=== PATIENT | male | born 1930 | race Caucasian/White ===

== ENCOUNTER 2016-05-14 15:22 | Outpatient (CLI) | payer MEDICARE, OTHER | END 2016-05-14 15:23 | disposition home or self-care (01) | DX: R35.8 Other polyuria (principal); R10.9 Unspecified abdominal pain ==

== ENCOUNTER 2016-05-21 12:58 | Outpatient (CLI) | payer MEDICARE, OTHER | END 2016-05-21 12:59 | disposition home or self-care (01) | DX: K82.4 Cholesterolosis of gallbladder (principal); N28.1 Cyst of kidney, acquired; R10.9 Unspecified abdominal pain; R31.9 Hematuria, unspecified ==

== ENCOUNTER 2016-06-07 10:51 | Outpatient (CLI) | payer MEDICARE, OTHER | END 2016-06-07 10:52 | disposition home or self-care (01) | DX: R31.9 Hematuria, unspecified (principal); R10.9 Unspecified abdominal pain ==

== ENCOUNTER 2016-06-20 09:37 | Outpatient (CLI) | payer MEDICARE, OTHER ==
[2016-06-20] MEDS ORDERED: SODIUM CHLORIDE 0.9% IV ONE (14:52)
[2016-06-20] MEDS ORDERED: SINCALIDE IV ONE (14:52)
== END 2016-06-20 09:38 | disposition home or self-care (01) ==
DX: Q61.02 Congenital multiple renal cysts (principal); R31.9 Hematuria, unspecified
CPT/HCPCS: 74176; 78227; A9537

== ENCOUNTER 2016-09-07 10:28 | Outpatient (CLI) | payer MEDICARE, OTHER | END 2016-09-07 10:29 | disposition home or self-care (01) | DX: M50.321 Other cervical disc degeneration at C4-C5 level (principal); M47.892 Other spondylosis, cervical region; M43.12 Spondylolisthesis, cervical region ==

== ENCOUNTER 2016-10-15 12:17 | Outpatient (CLI) | payer MEDICARE, OTHER ==
--- NOTE | 2016-10-16 09:39 | XRAY Report ---
CHEST PA AND LATERAL: 10/15/2016 CLINICAL HISTORY: Dyspnea. COMPARISON: 04/14/2015. FINDINGS: Sternal wire sutures are seen. Mild anterior spurring is detected in the thoracic spine. T here are some bridging osteophytes suggested in the mid to lower thoracic spine. The heart and great vessels demonstrate normal cardiac size with minor vascular calcification in the aortic arch. The mediastinum is not widened. The pulmonary parenchyma appears normal. IMPRESSION: 1. STERNAL WIRE SUTURES ARE NOTED. NORMAL CARDIAC SIZE IS SEEN. 2. THE LUNGS APPEAR NORMAL. JOB #: [id number] EXT JOB #:[id number]
== END 2016-10-15 12:18 | disposition home or self-care (01) ==
LOC: DI.S 12:17
PROVIDERS: ATTEND Nurse Practitioner Family
DX: R06.00 Dyspnea, unspecified (principal)
CPT/HCPCS: 71020; 93005

== ENCOUNTER 2016-10-24 08:00 | Outpatient (CLI) | payer MEDICARE, OTHER | END 2016-10-24 08:01 | disposition home or self-care (01) | LOC: LAB.R 08:00 | PROVIDERS: ATTEND Family Medicine | DX: R31.9 Hematuria, unspecified (principal) | CPT/HCPCS: 87086 ==

== ENCOUNTER 2017-03-06 13:20 | Outpatient (CLI) | payer MEDICARE, OTHER ==
--- NOTE | 2017-03-06 16:10 | Ultrasound Report ---
LEFT LEG VENOUS DUPLEX: 03/06/2017 INDICATION: Left calf pain, swelling TECHNIQUE: Real-time sonographic vascular imaging was performed by the kiln car unloader through the left leg utilizing both color flow and Doppler spectral analysis. Multiple credit resolution representative static images were saved for review. FINDINGS: A left lower extremity venous sonogram is performed revealing the common femoral, superficial femoral, profunda femoris, and popliteal veins to be adequately visualized without intraluminal defects. There is normal venous compression, augmentation, phasicity, and spontaneity of venous flow. In the calf, the visualized more cephalad portions of posterior tibial and peroneal veins are grossly compressible, without filling defects. Superficial thrombophlebitis is seen in the left [id number] calf, in the site of redness and pain identified by the patient. IMPRESSION: NO EVIDENCE OF DEEP VENOUS THROMBOSIS. SUPERFICIAL THROMBOPHLEBITIS. JOB #: [id number] EXT JOB #: [id number] GARFIELD
== END 2017-03-06 13:21 | disposition home or self-care (01) ==
LOC: DI 13:20
PROVIDERS: ATTEND Family Medicine
DX: I80.02 Phlebitis and thrombophlebitis of superficial vessels of left lower extremity (principal)

== ENCOUNTER 2017-04-14 14:22 | Outpatient (CLI) | payer MEDICARE, OTHER ==
--- NOTE | 2017-04-17 13:39 | Ultrasound Report ---
LEFT LEG VENOUS DUPLEX: 04/14/2017 CLINICAL INDICATION: Thrombophlebitis, superficial. COMPARISON: 03/06/2017 TECHNIQUE: Real-time sonographic vascular imaging was performed by the customer service professional through the left leg utilizing both color-flow and Doppler spectral analysis. Multiple medical office representative static images were saved for review. FINDINGS: There is normal compression, augmentation, and flow in the left common femoral, superficial femoral, profunda femoris, popliteal, and deep calf veins. Superficial thrombophlebitis has propagated proximally, with thrombus now seen through the left thigh to within 3 cm of the left common femoral vein. IMPRESSION: NO EVIDENCE OF DVT, BUT THERE HAS BEEN PROPAGATION OF SUPERFICIAL THROMBOPHLEBITIS IN THE LEFT THIGH. LOR/ TD: 04/14/2017 16:46 MTDD
== END 2017-04-14 14:23 | disposition home or self-care (01) ==
LOC: DI 14:22
PROVIDERS: ATTEND Family Medicine
DX: I80.02 Phlebitis and thrombophlebitis of superficial vessels of left lower extremity (principal)

== ENCOUNTER 2017-04-22 08:00 | Outpatient (CLI) | payer MEDICARE, OTHER | END 2017-04-22 08:01 | disposition home or self-care (01) | LOC: LAB.F 08:00 | PROVIDERS: ATTEND Nurse Practitioner Family | DX: Z53.9 Procedure and treatment not carried out, unspecified reason (principal) | CPT/HCPCS: 36415; 80053; 84154; 85025 ==

== ENCOUNTER 2017-04-23 10:08 | Outpatient (CLI) | payer MEDICARE, OTHER ==
[2017-04-23 18:31] LABS: BASOPHILS % (AUTO) 0.4 %; EOSINOPHILS # (AUTO) 0.1 10^3/uL (0.0-0.7); EOSINOPHILS % (AUTO) 1.5 %; LYMPHOCYTES # (AUTO) 1.7 10^3/uL (1.5-3.5); LYMPHOCYTES % (AUTO) 20.9 %; MEAN CORPUSCULAR HEMOGLOBIN 32.2 pg (27.0-31.0); MEAN CORPUSCULAR HGB CONC 31.9 g/dL (32.0-36.0); MEAN CORPUSCULAR VOLUME 100.8 fL (80.0-94.0); MEAN PLATELET VOLUME 7.7 fL (7.4-11.4); MONOCYTES # (AUTO) 0.7 10^3/uL (0.0-1.0); NEUTROPHILS # (AUTO) 5.4 10^3/uL (1.5-6.6); NEUTROPHILS % (AUTO) 68.2 %; NUCLEATED RED BLOOD CELLS AUTO 0.2 /100WBC; RED BLOOD COUNT 4.66 10^6/uL (4.70-6.10); RED CELL DISTRIBUTION WIDTH 15.5 % (12.0-15.0)
[2017-04-23 18:39] LABS: ALBUMIN/GLOBULIN RATIO 1.4 (1.0-2.2); BILIRUBIN,TOTAL 0.6 mg/dL (0.2-1.0); CALCIUM 9.3 mg/dL (8.5-10.3); CREATININE 1.3 mg/dL (0.6-1.2); TOTAL PROTEIN 7.2 g/dL (6.7-8.2)
[2017-04-23 18:50] LABS: PSA FREE 0.81 ng/mL (0.16-2.81)
[2017-04-23 18:51] LABS: PSA TOTAL 3.21 ng/mL (0.000-2.000)
[2017-04-23 19:57] LABS: NP AUTO DIFFERENTIAL? NO; NP MAN DIFFERENTIAL? YES
[2017-04-23 19:58] LABS: PLATELET ESTIMATE, MANUAL INCREASED (>450,000) (NORMAL); PLATELET MORPHOLOGY 1+ LARGE PLATELETS (NORMAL)
== END 2017-04-23 10:09 | disposition home or self-care (01) ==
LOC: LAB.F 10:08
PROVIDERS: ATTEND Nurse Practitioner Family
DX: Z79.01 Long term (current) use of anticoagulants (principal); I80.02 Phlebitis and thrombophlebitis of superficial vessels of left lower extremity; R97.20 Elevated prostate specific antigen [PSA]
CPT/HCPCS: 36415; 80053; 84154; 85025

== ENCOUNTER 2017-05-01 10:50 | Outpatient (CLI) | payer MEDICARE, OTHER ==
[2017-05-01] MEDS ORDERED: IOPAMIDOL-300 100 ML VIAL IVP ONE (13:32)
--- NOTE | 2017-05-02 10:02 | CT Report ---
DATE OF SERVICE: 05/01/2017 EXAMINATION: ABDOMEN AND PELVIS CT WITH AND WITHOUT CONTRAST: 05/01/2017 COMPARISON: Abdomen and pelvis CT of 06/20/2016. INDICATION: Hematuria. TECHNIQUE: Axial imaging of the abdomen and pelvis was performed with and without contrast using IVP technique. 100 mL of Isovue-300 intravenous contrast. No oral contrast. Coronal and sagittal reformats. FINDINGS There is a small left pleural effusion of uncertain etiology. The liver, spleen and pancreas appear unremarkable. There is a left adrenal nodule. It measures 2.1 x 1.8 cm, and -10 Hounsfield units, consistent with a lipid-rich adenoma. There is mild right adrenal hypertrophy and calcification. There are multiple bilateral renal cortical cysts. No renal mass. There is a focal thickening of the right posterior bladder that measures 8 mm. This is seen to advantage on axial image #64 and coronal image #27. No other filling defects are demonstrated on IVP. Sternotomy is noted. No discrete bone lesions in other regards. Soft tissues grossly unremarkable. IMPRESSION 1. THERE IS A FOCAL AREA OF BLADDER WALL THICKENING WHICH IS CONCERNING FOR POSSIBLE NEOPLASM. UROLOGIC CONSULTATION IS RECOMMENDED FOR CONSIDERATION OF CYSTOSCOPY. 2. 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 In accordance with CT protocol optimization, one or more of the following dose reduction techniques were utilized for this exam: automated exposure control, adjustment of mA and/or KV based on patient size, or use of iterative reconstructive technique. TD: 05/02/2017 10:30 G[place]
== END 2017-05-01 10:51 | disposition home or self-care (01) ==
LOC: DI 10:50
PROVIDERS: ATTEND Family Medicine
DX: N32.89 Other specified disorders of bladder (principal); D35.02 Benign neoplasm of left adrenal gland
CPT/HCPCS: 74178; Q9967

== ENCOUNTER 2017-05-19 12:44 | Outpatient (CLI) | payer MEDICARE, OTHER ==
[~2017-05-19 12:44] MED LIST: GADOBUTROL 7.5 MMOL/7.5 ML VIAL ONE
[2017-05-19] MEDS ORDERED: GADOBUTROL 7.5 MMOL/7.5 ML VIAL IVP ONE (13:42)
--- NOTE | 2017-05-19 14:49 | MRI Report ---
EXAM: MRI BRAIN WITHOUT AND WITH CONTRAST EXAM DATE: 05/19/2017 01:54 PM. CLINICAL HISTORY: Worsening memory loss, dizziness, new diagnosis bladder cancer COMPARISON: None. TECHNIQUE: Multiplanar, multisequence T1-weighted and fluid-sensitive MR sequences of the brain were performed. Sequences optimized for routine evaluation. Other: None. IV Contrast: Yes. 4 mL Gadavist FINDINGS: Brain volume: Moderate diffuse cerebral and cerebellar volume loss with ex vacuo dilatation of the ve ntricles and sulci, appropriate for age. Parenchyma: No acute hemorrhage, mass, or infarct. Scattered T2/FLAIR hyperintense periventricular, d eep, and subcortical white matter lesions within cerebral hemispheres bilaterally. No parenchymal yaakov rohemorrhages. The apparent enhancement within the right cerebellar hemisphere and right brachium lucía tis (for example series 1102 image 38) is favored to be artifactual. No masslike intracranial enhance ment. The study however is somewhat limited as the axial postcontrast images do not include the super ior frontal and parietal lobes. Ventricles/Cisterns: No hydrocephalus. No abnormal extra-axial fluid collection or hemorrhage. Orbits: Status post bilateral lens replacement surgery. The visualized orbits are otherwise unremarka ble. Sella Turcica: The pituitary gland, cavernous sinuses, suprasellar cistern and optic chiasm are unrem arkable. IAC: Symmetric and unremarkable. Vasculature: Normal signal flow void is seen in the major arterial structures at the skull base. The dural sinuses are patent and enhance normally. Sinuses: No acute sinus disease. Bones: No focal pathologic appearing marrow signal changes. Other: None. IMPRESSION: 1. No masslike intracranial enhancement to suggest evidence for intracranial metastatic disease. 2. No MRI evidence of acute intracranial abnormality. Specifically, no evidence of acute or subacute infarct, acute intracranial hemorrhage, mass, midline shift, or hydrocephalus. 3. Moderate diffuse cerebral and cerebellar volume loss with ex vacuo dilatation of the ventricles an d sulci, appropriate for age. 4. Scattered T2/FLAIR hyperintense periventricular, deep, and subcortical white matter lesions within cerebral hemispheres bilaterally. While nonspecific, this is favored to represent sequela of chronic microangiopathy. [facility] Referring Provider Line: [phone] SITE ID: [id number]
== END 2017-05-19 12:45 | disposition home or self-care (01) ==
LOC: DI 12:44
PROVIDERS: ATTEND Psychiatry & Neurology Neurology
DX: R41.3 Other amnesia (principal); R42 Dizziness and giddiness
CPT/HCPCS: 70553; A9585

== ENCOUNTER 2017-06-21 12:29 | Outpatient (CLI) | payer MEDICARE, OTHER | END 2017-06-21 12:30 | disposition home or self-care (01) | LOC: DI 12:29 | PROVIDERS: ATTEND Internal Medicine Cardiovascular Disease | DX: I50.9 Heart failure, unspecified (principal); I51.7 Cardiomegaly | CPT/HCPCS: 93306 ==

== ENCOUNTER 2017-07-11 09:21 | Outpatient (CLI) | payer MEDICARE, OTHER ==
[2017-07-11] MEDS ORDERED: IOPAMIDOL-300 100 ML VIAL ONE (09:52)
[2017-07-11] MEDS ORDERED: IOPAMIDOL-300 50 ML VIAL ONE (09:52)
[2017-07-11 11:38] LABS: CREATININE 1.3 mg/dL (0.6-1.2)
[2017-07-11] MEDS ORDERED: IOPAMIDOL-300 100 ML VIAL IVP ONE (12:11)
[2017-07-11] MEDS ORDERED: IOPAMIDOL-300 50 ML VIAL PO ONE (12:18)
--- NOTE | 2017-07-11 13:04 | CT Report ---
ABDOMEN AND PELVIS CT: 07/11/2017 COMPARISON: Abdomen and pelvis CT 06/20/2016. INDICATION: Malignant neoplasm of the bladder. TECHNIQUE: Axial imaging of the abdomen and pelvis was performed with intravenous and oral contrast. 100 mL Isovue-300. FINDINGS: The lung bases appear unremarkable. The liver has a normal contour without masses. The spleen and pancreas appear unremarkable. There are stable, bilateral adrenal adenomas. There are stable-appearing bilateral renal cortical cysts. No urologic stones are demonstrated. There is high attenuating material in the bladder near the right UVJ and the right bladder wall, nonspecific. There are colon diverticula without evidence of diverticulitis. No bone lesions are seen. There are left groin clips superficially. IMPRESSION: THERE IS HIGH ATTENUATING MATERIAL ABOUT THE RIGHTWARD ASPECT OF THE BLADDER, WHICH IS NONSPECIFIC. IT MAY REPRESENT CALCIFICATION VERSUS POSTSURGICAL CHANGE. IT IS UNLIKELY TO REPRESENT CONTRAST THE STUDY WAS PERFORMED IN THE PORTAL VENOUS PHASE. THERE ARE NO OTHER SUSPICIOUS FINDINGS. In accordance with CT protocol optimization, one or more of the following dose reduction techniques were utilized for this exam: automated exposure control, adjustment of mA and/or KV based on patient size, or use of iterative reconstructive technique. TD: 07/11/2017 13:03 [facility]
--- NOTE | 2017-07-11 13:15 | CT Report ---
CHEST CT: 07/11/2017 COMPARISON: None. INDICATION: Malignant bladder neoplasm. TECHNIQUE: Axial imaging of the chest with coronal and sagittal reformats. 100 mL Isovue-300. FINDINGS: The lungs appear clear. No pneumothorax or pleural effusion. Airways are unremarkable. The major vessels also appear unremarkable. There are calcifications of the coronary arteries. Sternotomy is noted. There is a 2.4 x 1.3 cm left adrenal adenoma. Renal cortical cysts are noted. Limited upper abdomen appears otherwise unremarkable. No bone lesions are seen. IMPRESSION: THERE ARE NO SUSPICIOUS THORACIC ABNORMALITIES. In accordance with CT protocol optimization, one or more of the following dose reduction techniques were utilized for this exam: automated exposure control, adjustment of mA and/or KV based on patient size, or use of iterative reconstructive technique. TD: 07/11/2017 13:14 MTDD
== END 2017-07-11 09:22 | disposition home or self-care (01) ==
LOC: LAB 09:21 → DI 09:22
PROVIDERS: ATTEND Radiology Radiation Oncology
DX: C67.8 Malignant neoplasm of overlapping sites of bladder (principal)
CPT/HCPCS: 36415; 71260; 74177; 82565; 84520; Q9967

== ENCOUNTER 2017-10-09 09:31 | Outpatient (CLI) | payer MEDICARE, OTHER ==
[2017-10-09] MEDS ORDERED: REGADENOSON 0.4 MG/5 ML SYRINGE IVP ONE ×2 (11:27→14:31)
--- NOTE | 2017-10-09 16:14 | Nuclear Medicine Report ---
Procedure Date: 10/09/2017 Accession Number: [id number] / [id number] Procedure: NM - Myocardial Perfusion STR/RST CPT Code: FULL RESULT: EXAM: SINGLE-ISOTOPE PHARMACOLOGICAL STRESS TEST WITH REGADENOSON. SINGLE-ISOTOPE AND ONE-DAY REST/STRESS MYOCARDIAL PERFUSION SCANS WITH TOMOGRAPHIC IMAGING, QUANTITATIVE ANALYSIS, WALL MOTION ANALYSIS AND CALCULATION OF EJECTION FRACTION. EXAM DATE: 10/09/2017 02:33 PM. CLINICAL HISTORY: ANGINA. COMPARISON: None available. TECHNIQUE: After the intravenous administration of 9 mCi of Tc-99m sestamibi, a rest myocardial perfusion scan was done with tomography. Motion correction was applied when appropriate. After an appropriate delay, pharmacological stress was performed with the infusion of 0.4 mg regadenoson per protocol. According to protocol, 40.4 mCi of Tc-99m sestamibi was injected for stress myocardial perfusion scan. Motion correction was applied when appropriate. Gated tomographic images were obtained for wall motion analysis and computation of left ventricular ejection fraction. EKG interpretation by the nurse practitioner: Normal sinus rhythm with left bundle branch block at rest and with stress. Mild headache with infusion. No chest pain. FINDINGS: Images show a large, severe, fixed anterior wall perfusion defect. No significant reversible defects are noted. Computer generated stress scores: Summed stress score 15 Summed rest score 13 Summed difference score 2 Wall motion analysis demonstrates diffuse hypokinesis. The left ventricular end-diastolic volume is 173 cc. The left ventricular end-systolic volume is 113 cc. The left ventricular ejection fraction is calculated to be 35%. IMPRESSION: 1. Severe fixed anterior wall perfusion defect. No significant reversible defects are noted. 2. Left ventricular ejection fraction of 35%. 3. Diffuse hypokinesis. 4. End-diastolic volume 173 mL. 5. Based on the computer generated stress scores, severely abnormal exam, mild ischemia. [facility]
--- NOTE | 2017-10-09 16:19 | CARDIAC PROCEDURE NOTE ---
DATE OF SERVICE: 10/09/2017 Physician: JM Lao PRIMARY CARE PHYSICIAN: Dr. Gandara/Dr. Garrett Lay. PROCEDURE: Pharmacologic cardiac stress test. PROCEDURE DIAGNOSIS OR SYMPTOMS: Angina. PREVIOUS CARDIAC PROCEDURES: CABG. CLINICAL HISTORY: An 86-year-old male with known coronary artery disease. He has a left bundle branch block. MEDICATIONS HELD: Ranexa. INITIAL RESTING VITAL SIGNS: BP 172/96, heart rate 61, height 71 inches, weight 183 pounds. PROCEDURE AND FINDINGS: The patient identity and date verified. Consent signed. Pharmaceutical check. Pharmacologic stress testing was performed with Lexiscan at a dose of 0.4 mg over 10 seconds. The heart rate increased to 82 beats per minute from the infusion. Blood pressure decreased to 142/70 by 4 minutes into recovery. The patient had no more lightheadedness than his baseline. The patient developed mild infusion-related symptoms, which included headache, and resolved spontaneously. Both resting and exercise ECG demonstrated normal sinus rhythm with left bundle branch block. 1 PAC was noted. FINAL IMPRESSIONS 1. Nondiagnostic electrocardiogram for ischemia in the setting of vasodilator stress. 2. Nondiagnostic stress test for angina. The patient had no chest pain. 3. One PVC. 4. Await myocardial perfusion report. TD: 10/09/2017 14:19 [facility]
[2017-10-09 19:31] VITALS: BP 172/96
== END 2017-10-09 09:32 | disposition home or self-care (01) ==
LOC: DI 09:31
PROVIDERS: ATTEND Internal Medicine Cardiovascular Disease
DX: I25.9 Chronic ischemic heart disease, unspecified (principal); R94.39 Abnormal result of other cardiovascular function study
CPT/HCPCS: 78452; 93017; A9500; J2785

== ENCOUNTER 2017-11-26 13:51 | Outpatient (CLI) | payer MEDICARE, OTHER ==
--- NOTE | 2017-11-26 19:00 | MRI Report ---
Procedure Date: 11/26/2017 Accession Number: [id number] / [id number] Procedure: MRI - Angio Brain W/O (MRA) CPT Code: FULL RESULT: EXAM MRA BRAIN EXAM DATE: 11/26/2017 02:40 PM. CLINICAL HISTORY: BILATERAL LEG WEAKNESS, PRE-SYNCOPE. COMPARISON: Prior MRI brain 05/19/2017. TECHNIQUE: Multiplanar, multisequence MRA sequences of the brain were performed. Other: None. Post-processing: Multiplanar 3D MIP reconstructions. IV Contrast: None. Findings: Relevant images are indicated (image number, series number). Left ICA: Patent including MCA, LAMBERTO. Right ICA: Patent including MCA, LAMBERTO. Markedly hypoplastic right A1 segment. Patent anterior communicating artery, right LAMBERTO supplied through left A1 segment. Posterior circulation: Patent. Impressions: 1. Patent major arteries of the brain, with normal anatomical variability as described. No aneurysm, dissection, stenosis, AVM. [facility]
== END 2017-11-26 13:52 | disposition home or self-care (01) ==
LOC: DI 13:51
PROVIDERS: ATTEND Psychiatry & Neurology Neurology
DX: R55 Syncope and collapse (principal); R29.898 Other symptoms and signs involving the musculoskeletal system; R42 Dizziness and giddiness
CPT/HCPCS: 70544

== ENCOUNTER 2017-12-05 14:07 | Outpatient (CLI) | payer MEDICARE, OTHER ==
--- NOTE | 2017-12-05 14:36 | XRAY Report ---
Procedure Date: 12/05/2017 Accession Number: [id number] / [id number] Procedure: XR - Chest 2 View X-Ray CPT Code: 18993 FULL RESULT: EXAM: CHEST RADIOGRAPHY EXAM DATE: 12/05/2017 02:20 PM. CLINICAL HISTORY: SOB, cough, fatigue. COMPARISON: Chest 2 view PA/lateral 10/15/2016 12:28 AM. TECHNIQUE: 2 views. FINDINGS: Lungs/Pleura: Interval development of bibasilar consolidation with small bilateral pleural effusions. Upper lungs are clear. No pneumothorax. Mediastinum: The cardiomediastinal silhouette is stable accounting for rotation. Other: The patient is status post median sternotomy. Status post CABG. IMPRESSION: No bibasilar consolidation with bilateral small pleural effusions. [facility]
== END 2017-12-05 14:08 | disposition home or self-care (01) ==
LOC: DI 14:07
PROVIDERS: ATTEND Nurse Practitioner Family
DX: R06.02 Shortness of breath (principal); R05 Cough; R53.83 Other fatigue; J90 Pleural effusion, not elsewhere classified
CPT/HCPCS: 71046

== ENCOUNTER 2017-12-21 12:33 | Outpatient (CLI) | payer MEDICARE, OTHER | END 2017-12-21 12:34 | disposition home or self-care (01) | LOC: DI 12:33 | PROVIDERS: ATTEND Internal Medicine Cardiovascular Disease | DX: I26.99 Other pulmonary embolism without acute cor pulmonale (principal) | CPT/HCPCS: 93306 ==

== ENCOUNTER 2018-01-03 13:23 | Outpatient (CLI) | payer MEDICARE, OTHER ==
--- NOTE | 2018-01-03 14:29 | Ultrasound Report ---
Reason: PULMONARY EMBOLISM Procedure Date: 01/03/2018 Accession Number: [id number] / [id number] Procedure: US - Duplex Ext Veins Bilateral CPT Code: FULL RESULT: EXAM: BILATERAL LOWER EXTREMITY VENOUS ULTRASOUND EXAM DATE: 01/03/2018 02:13 PM. CLINICAL HISTORY: Pulmonary embolism COMPARISON: Left lower extremity ultrasound 03/06/2017. TECHNIQUE: Real-time sonographic vascular imaging was performed by the guest room inspector through the lower extremities utilizing both color-flow and Doppler spectral analysis. Multiple service center representative static images were saved for review. FINDINGS: Right: Common Femoral Vein (CFV): Normal. CFV-GSV Junction: Occlusive thrombosis of the right greater saphenous. Profunda Femoral Vein (PFV): Normal. Femoral Vein (FV) Prox: Normal. Femoral Vein (FV) Mid: Normal. Femoral Vein (FV) Dist: Normal. Popliteal Vein: Normal. Posterior Tibial Veins: Normal. Peroneal Veins: Normal. Left: Common Femoral Vein (CFV): Normal. CFV-GSV Junction: Normal. Profunda Femoral Vein (PFV): Normal. Femoral Vein (FV) Prox: Normal. Femoral Vein (FV) Mid: Normal. Femoral Vein (FV) Dist: Normal. Popliteal Vein: Normal. Posterior Tibial Veins: Normal. Peroneal Veins: Normal. Other: None. IMPRESSION: 1. Occlusive venous thrombosis right greater saphenous vein. 2. Remaining veins of the bilateral lower extremities are widely patent. [facility]
== END 2018-01-03 13:24 | disposition home or self-care (01) ==
LOC: DI 13:23
PROVIDERS: ATTEND Family Medicine
DX: I26.99 Other pulmonary embolism without acute cor pulmonale (principal); I82.811 Embolism and thrombosis of superficial veins of right lower extremity
CPT/HCPCS: 93970

== ENCOUNTER 2018-02-05 13:39 | Outpatient (CLI) | payer MEDICARE, OTHER ==
[2018-02-05 17:24] LABS: BASOPHILS % (AUTO) 0.4 %; EOSINOPHILS # (AUTO) 0.2 10^3/uL (0.0-0.7); EOSINOPHILS % (AUTO) 2.3 %; HGB - HEMOGLOBIN 15.1 g/dL (14.0-18.0); LYMPHOCYTES # (AUTO) 1.5 10^3/uL (1.5-3.5); MEAN CORPUSCULAR HEMOGLOBIN 33.4 pg (27.0-31.0); MEAN CORPUSCULAR HGB CONC 32.9 g/dL (32.0-36.0); MEAN CORPUSCULAR VOLUME 101.5 fL (80.0-94.0); MEAN PLATELET VOLUME 8.2 fL (7.4-11.4); MONOCYTES # (AUTO) 0.8 10^3/uL (0.0-1.0); MONOCYTES % (AUTO) 9.1 %; NEUTROPHILS % (AUTO) 70.2 %; PLT - PLATELET COUNT 323 10^3/uL (130-450); RED BLOOD COUNT 4.52 10^6/uL (4.70-6.10); RED CELL DISTRIBUTION WIDTH 16.2 % (12.0-15.0); WHITE BLOOD COUNT 8.5 x10^3/uL (4.8-10.8)
[2018-02-05 18:02] LABS: ALBUMIN 3.8 g/dL (3.2-5.5); ALBUMIN/GLOBULIN RATIO 1.2 (1.0-2.2); BILIRUBIN,TOTAL 0.5 mg/dL (0.2-1.0); CALCIUM 9.5 mg/dL (8.5-10.3); CREATININE 1.2 mg/dL (0.6-1.2); TOTAL PROTEIN 6.9 g/dL (6.7-8.2)
== END 2018-02-05 13:40 | disposition home or self-care (01) ==
LOC: LAB.F 13:39
PROVIDERS: ATTEND Family Medicine
DX: R10.9 Unspecified abdominal pain (principal)
CPT/HCPCS: 36415; 80053; 85025

== ENCOUNTER 2018-02-12 10:54 | Outpatient (CLI) | payer MEDICARE, OTHER ==
[2018-02-12] MEDS ORDERED: IOPAMIDOL-300 100 ML VIAL ONE (11:05)
[2018-02-12] MEDS ORDERED: IOPAMIDOL-300 50 ML VIAL ONE (11:05)
[2018-02-12] MEDS ORDERED: IOPAMIDOL-300 100 ML VIAL IVP ONE (14:36)
[2018-02-12] MEDS ORDERED: IOPAMIDOL-300 50 ML VIAL PO ONE (14:36)
--- NOTE | 2018-02-13 09:03 | CT Report ---
Reason: ABDOMINAL PAIN,CHRONIC Procedure Date: 02/12/2018 Accession Number: [id number] / [id number] Procedure: CT - Abdomen/Pelvis W/ CPT Code: FULL RESULT: EXAM: CT ABDOMEN AND PELVIS EXAM DATE: 02/12/2018 01:00 PM. CLINICAL HISTORY: Chronic abdominal pain. COMPARISONS: Abdomen/pelvis w/ 07/11/2017 11:58 AM. TECHNIQUE: Routine helical CT imaging was performed through the abdomen and pelvis. IV contrast: Isovue 300 100 mL. Enteric contrast: Yes. Reconstructions: Coronal and sagittal. In accordance with CT protocol optimization, one or more of the following dose reduction techniques were utilized for this exam: automated exposure control, adjustment of mA and/or KV based on patient size, or use of iterative reconstructive technique. FINDINGS: Lung Bases: New minor scarring/atelectasis is seen in the anterior right lower lobe. A trace left pleural effusion is present, minimally increased compared to prior study. Liver: Normal. No masses. Gallbladder/Bile Ducts: Unremarkable. Spleen: Normal. Pancreas: Normal. Adrenal Glands: Nodular thickening bilateral adrenal glands is stable measuring up to 1.9 x 1.5 cm on the right and 2.4 x 1.9 cm on the left. Punctate calcification is again seen in the right adrenal gland. Kidneys: Multiple cortical and peripelvic cysts are again seen scattered throughout the kidneys bilaterally. There is no nephrolithiasis, hydronephrosis, or solid mass evident. Peritoneal Cavity/Bowel: There is minimal predominantly sigmoid diverticulosis without evidence of diverticulitis. There is no obstruction or ileus. No free fluid or free air. The appendix is not visualized; however, no inflammatory changes are seen in the right lower quadrant region. Pelvic Organs: Small fat-containing left inguinal hernia is seen again. There are postoperative changes in the left inguinal region. At the left inguinal canal there is stable focal soft tissue prominence measuring 2.3 x 1.8 cm which may be related to scar tissue formation (image 72, series 3). There is no pelvic adenopathy or free fluid. Prostate gland and bladder are unremarkable. Vasculature: No aneurysms or other significant abnormality. Bones: Diffuse degenerative changes are seen in the spine. No acute osseous abnormality is demonstrated. Other: None. IMPRESSION: 1. No acute intra-abdominal abnormality demonstrated. 2. Minimal sigmoid diverticulosis without diverticulitis. 3. Stable small fat-containing left inguinal hernia and postoperative changes. Small nonspecific focal soft tissue change at the inguinal canal opening is also unchanged and could be related to chronic scarring. 4. Stable cortical and peripelvic renal cysts. No hydronephrosis. 5. Minor right lower lobe atelectasis/scarring and trace left pleural effusion. [facility]
== END 2018-02-12 10:55 | disposition home or self-care (01) ==
LOC: DI 10:54
PROVIDERS: ATTEND Family Medicine
DX: R10.9 Unspecified abdominal pain (principal); G89.29 Other chronic pain; K57.30 Diverticulosis of large intestine without perforation or abscess without bleeding; K40.90 Unilateral inguinal hernia, without obstruction or gangrene, not specified as recurrent
CPT/HCPCS: 74177; Q9967

== ENCOUNTER 2018-03-30 10:16 | Outpatient (CLI) | payer MEDICARE, OTHER ==
[2018-03-30 18:09] LABS: CALCIUM 9.1 mg/dL (8.5-10.3); CREATININE 1.3 mg/dL (0.6-1.2)
== END 2018-03-30 10:17 | disposition home or self-care (01) ==
LOC: LAB.F 10:16
PROVIDERS: ATTEND Internal Medicine Cardiovascular Disease
DX: I50.9 Heart failure, unspecified (principal)
CPT/HCPCS: 36415; 80048

== ENCOUNTER 2018-06-09 20:26 | Outpatient (CLI) | payer MEDICARE, OTHER | END 2018-06-09 20:27 | disposition short-term general hospital (02) | LOC: EMS 20:26 | PROVIDERS: ATTEND Surgery | DX: R52 Pain, unspecified (principal) | CPT/HCPCS: A0425; A0427 ==

== ENCOUNTER 2018-08-23 08:30 | Outpatient (CLI) | payer MEDICARE, OTHER ==
--- NOTE | 2018-08-24 01:38 | XRAY Report ---
Reason: NEOPLASM OF UNCERTAIN BEHAVIOR,GROINT PAIN,RIGHT,P Procedure Date: 08/23/2018 Accession Number: [id number] / [id number] Procedure: XR - Hip w/Pelvis 2-3V RT CPT Code: FULL RESULT: EXAM: RIGHT HIP RADIOGRAPHY EXAM DATE: 08/23/2018 08:43 AM. CLINICAL HISTORY: Right hip and groin pain for the past month. NEOPLASM OF UNCERTAIN BEHAVIOR,GROINT PAIN,RIGHT,P. COMPARISON: None. TECHNIQUE: 2 views. FINDINGS: Bones: Bones are demineralized which limits evaluation for nondisplaced acute fractures. No evidence for fracture. No bone lesion is seen. Joints: Mild right hip degenerative joint disease with osteophytes and sclerosis. Mild right sacroiliac sclerosis. No dislocation. Soft Tissues: No acute findings are seen. Left upper medial thigh surgical clips. IMPRESSION: Bones are demineralized which limits evaluation for nondisplaced acute fracture. No evidence for fracture or bone lesion. Mild right hip degenerative joint disease. [facility]
--- NOTE | 2018-08-28 15:00 | Ultrasound Report ---
Reason: NEOPLASM OF UNCERTAIN BEHAVIOR,GROINT PAIN,RIGHT,P Procedure Date: 08/23/2018 Accession Number: [id number] / [id number] Procedure: US - Head or Neck Soft Tissue CPT Code: FULL RESULT: EXAM: NECK ULTRASOUND EXAM DATE: 08/23/2018 09:45 AM. CLINICAL HISTORY: Left neck mass COMPARISON: None. TECHNIQUE: Real-time sonographic imaging was performed by the engraver pantograph utilizing color-flow. Multiple territory representative static images were saved for review. FINDINGS: Corresponding to the palpable abnormality in the left submandibular region is a normal-appearing 3 x 1.1 x 2.1 cm submandibular gland. There is no adjacent adenopathy, mass, fluid collection or other abnormality. IMPRESSION: The clinically palpable finding corresponds to the left submandibular gland. [facility]
== END 2018-08-23 08:31 | disposition home or self-care (01) ==
LOC: DI 08:30
PROVIDERS: ATTEND Internal Medicine
DX: D48.9 Neoplasm of uncertain behavior, unspecified (principal); M16.11 Unilateral primary osteoarthritis, right hip
CPT/HCPCS: 76536

== ENCOUNTER 2019-03-04 14:01 | Outpatient (CLI) | payer MEDICARE, OTHER | END 2019-03-04 14:02 | disposition EMS.NT | LOC: EMS 14:01 | PROVIDERS: ATTEND Surgery | DX: R06.02 Shortness of breath (principal); R07.9 Chest pain, unspecified ==

== ENCOUNTER 2019-03-12 14:03 | Outpatient (CLI) | payer MEDICARE, OTHER ==
--- NOTE | 2019-03-13 16:07 | XRAY Report ---
Reason: EXERTIONAL SOB Procedure Date: 03/12/2019 Accession Number: [id number] / [id number] Procedure: XR - Chest 2 View X-Ray CPT Code: 90264 Final Report FULL RESULT: EXAM: CHEST RADIOGRAPHY EXAM DATE: 03/12/2019 02:20 PM. CLINICAL HISTORY: Exertional shortness of breath. COMPARISON: CHEST 2 VIEW 12/05/2017 2:09 PM. TECHNIQUE: 2 views. FINDINGS: Lungs/Pleura: Mild bibasilar atelectasis or infiltrate. Small pleural effusions. Biapical scarring. No pneumothorax. Mediastinum: Heart size upper normal. Aortic atherosclerosis. Other: Status post median sternotomy. Implanted bipolar pacemaker on the left with leads in expected positions. IMPRESSION: 1. Borderline heart size and postoperative changes. 2. Mild bibasilar atelectasis or infiltrate and small pleural effusions. [facility]
== END 2019-03-12 14:04 | disposition home or self-care (01) ==
LOC: DI 14:03
PROVIDERS: ATTEND Registered Nurse
DX: R91.8 Other nonspecific abnormal finding of lung field (principal); J90 Pleural effusion, not elsewhere classified
CPT/HCPCS: 71046

== ENCOUNTER 2019-05-20 13:19 | Outpatient (CLI) | payer MEDICARE, OTHER ==
[2019-05-20 18:44] LABS: BASOPHILS % (AUTO) 0.3 %; EOSINOPHILS # (AUTO) 0.1 10^3/uL (0.0-0.7); EOSINOPHILS % (AUTO) 1.5 %; HGB - HEMOGLOBIN 16.6 g/dL (14.0-18.0); LYMPHOCYTES # (AUTO) 1.5 10^3/uL (1.5-3.5); LYMPHOCYTES % (AUTO) 20.4 %; MEAN CORPUSCULAR HEMOGLOBIN 33.5 pg (27.0-31.0); MEAN CORPUSCULAR HGB CONC 32.5 g/dL (32.0-36.0); MEAN CORPUSCULAR VOLUME 102.8 fL (80.0-94.0); MEAN PLATELET VOLUME 10.1 fL (7.4-11.4); MONOCYTES # (AUTO) 0.7 10^3/uL (0.0-1.0); MONOCYTES % (AUTO) 8.9 %; NEUTROPHILS # (AUTO) 5.1 10^3/uL (1.5-6.6); NEUTROPHILS % (AUTO) 68.4 %; PLT - PLATELET COUNT 385 10^3/uL (130-450); RED BLOOD COUNT 4.96 10^6/uL (4.70-6.10); RED CELL DISTRIBUTION WIDTH 16.1 % (12.0-15.0); WHITE BLOOD COUNT 7.4 x10^3/uL (4.8-10.8)
[2019-05-20 18:53] LABS: ALBUMIN/GLOBULIN RATIO 1.3 (1.0-2.2); CALCIUM 9.3 mg/dL (8.5-10.3); CREATININE 1.5 mg/dL (0.6-1.2)
== END 2019-05-20 13:20 | disposition home or self-care (01) ==
LOC: LAB.S 13:19
PROVIDERS: ATTEND Nurse Practitioner Family
DX: R42 Dizziness and giddiness (principal); I10 Essential (primary) hypertension; R53.83 Other fatigue
CPT/HCPCS: 36415; 80053; 84443; 85025

== ENCOUNTER 2019-07-08 11:40 | Outpatient (CLI) | payer MEDICARE, OTHER ==
--- NOTE | 2019-07-08 17:16 | CT Report ---
Reason: LUMBAR RADICULOPATHY Procedure Date: 07/08/2019 Accession Number: [id number] / [id number] Procedure: CT - LUMBAR SPINE WO CPT Code: Final Report FULL RESULT: CT LUMBAR SPINE WITHOUT CONTRAST INDICATION: 88-year-old male with lumbar radiculopathy. TECHNIQUE: Helical scan with reconstruction into 2 mm axial images. In addition, sagittal and coronal reformations have been generated. COMPARISON: None. FINDINGS: There are 5 [id number], lumbar type vertebrae. There is a minor levoconvex upper lumbar curvature with apex at the L1-L2 disk level. There is a compensatory, minor dextroconvex curvature with apex at about the L4-L5 disk level. In the sagittal plane there is a mild (grade 1) anterolisthesis of L3 on L4, measuring about 3.5 mm. There is no obvious L4 spondylolysis. The anterior subluxation appears to be secondary to degenerative facet arthrosis. Also demonstrated is a grade 1 anterolisthesis of L3 on L4 measuring about 4 mm, also likely degenerative in nature. There is a minor stepwise retrolisthesis of L1 on L2 and L2 on L3. The regional bony structures are osteopenic. This makes evaluation for subtle nondisplaced fracture somewhat limited. The vertebral body heights appear maintained throughout. No evidence of recent lumbar spine compression fracture. The pedicles and posterior elements appear intact. No lytic or destructive bone lesion is demonstrated. There is a prominent Schmorl node deformity in the inferior endplate of the L1 vertebral body. Vacuum change is seen in the disks at L1-L2, L2-L3 and L5-S1. There is mild to moderate disk space narrowing at L1-L2 with mild narrowing at L2-L3, minimal narrowing at L4-L5 and mild to moderate narrowing at L5-S1. Axial images: T11-T12: No disk herniation. Mild degenerative facet arthrosis without significant bony hypertrophy. No spinal canal or foraminal stenosis. T12-L1: No disk herniation or spinal stenosis. The neural foramina are widely patent bilaterally. L1-L2: No posterior disk herniation. Broad-based, intra-/extraforaminal extrusions are demonstrated bilaterally. Mild to moderate redundancy of the ligamenta flava. Prominent intralaminar fat pad. Associated mass-effect on the dorsal aspect of the dural sac. The mid sagittal canal diameter is reduced to about 12 mm. This should not represent significant spinal stenosis. There is at least mild foraminal narrowing bilaterally. L2-L3: Circumferential disk bulge. Broad-based intra-/extraforaminal extrusions bilaterally. Degenerative facet arthrosis without significant bony hypertrophy. Mild to moderate redundancy of the ligamenta flava and mild prominence of intralaminar fat. Mild to moderate spinal stenosis. Mild to moderate foraminal stenoses. L3-L4: Anterolisthesis with associated uncovering of the disk. No obvious posterior protrusion or extrusion is demonstrated. Broad-based intra-/extraforaminal extrusion bilaterally. Degenerative facet arthrosis with mild to moderate bony hypertrophy. There is at least moderate redundancy of the ligamenta flava. Foci of calcification or ossification are seen in the ligamenta flava. Mild prominence of intralaminar fat pad. Severe generalized (central and subarticular zone) spinal stenosis. On the right, there appears to be a superiorly directed intraforaminal extrusion giving rise to severe right foraminal stenosis. The perineural fat surrounding the exiting right L3 nerve root is effaced. L4-L5: Anterolisthesis with associated uncovering of the disk. Small intra-/extraforaminal protrusions bilaterally. Degenerative facet arthrosis with mild bony hypertrophy. No significant-appearing spinal stenosis. Mild to moderate foraminal stenoses. On the left, a bony spur arising from the supra-articular process of L5 projects into the foramen and contacts the posterior surface of the L4 nerve root. This is a potential cause for L4 nerve root irritation. L5-S1: Small broad-based posterior protrusion. No spinal stenosis. Small intra-/extraforaminal extrusions with associated minor intraforaminal osteophyte. Mild foraminal stenoses. There is partial ankylosis of the right SI joint anteriorly. Atherosclerotic calcification is noted in the abdominal aorta and both iliac arteries. No aneurysm is seen. Again demonstrated is a left adrenal nodule measuring about 2.5 x 1.8 cm, unchanged when compared to a previous abdomen CT of 05/01/2017. There is mild nodularity in the right adrenal gland, stable. Multiple cysts are again noted in both kidneys. IMPRESSION: 1. Degenerative disk and facet changes are seen throughout the lumbar spine as documented in detail above. 2. There are grade I degenerative anterior subluxations of L3 on L4 and L4 on L5. 3. Central, subarticular and foraminal zone stenoses are seen at multiple levels, as documented above. The most significant stenoses are as follows: At L3-L4 there is severe generalized (central and subarticular zone) spinal stenosis. There certainly could be compromise of the traversing L4 nerve roots in the subarticular zones. Recommend clinical correlation for possible L4 radiculopathy. At L3-L4 also demonstrated is a probable, high-grade, right-sided foraminal stenosis, likely from a superiorly directed intraforaminal extrusion. The perineural fat surrounding the exiting right L3 nerve root is effaced. Recommend clinical correlation for probable right L3 radiculopathy.
--- NOTE | 2019-07-08 18:25 | XRAY Report ---
Reason: LUMBAR RADICULOPATHY Procedure Date: 07/08/2019 Accession Number: [id number] / [id number] Procedure: XR - Lumbar Spine 2 View CPT Code: Final Report FULL RESULT: EXAM: LUMBOSACRAL SPINE RADIOGRAPHY EXAM DATE: 07/08/2019 12:04 PM. CLINICAL HISTORY: Lumbar radiculopathy. COMPARISONS: LUMBAR SPINE W/O 07/08/2019 11:54 AM. TECHNIQUE: 2 views. FINDINGS: Alignment: Stable with mild retrolisthesis of L2 on L3 and anterolisthesis of L3 on L4. Bones: Five [id number] lumbar vertebral bodies are present. No fractures or bone lesions. Degenerative changes: Better assessed by the CT of earlier in the day. Moderate to severe lower lumbar degenerative changes again noted in the facet joints. Moderate to severe L1-L2, L2-L3, and L5-S1 disk height loss. Lesser L3-L4 and L4-L5 disk height loss. Soft Tissues: Atherosclerotic disease. The visualized bowel gas pattern is normal. IMPRESSION: 1. Lumbar spine appears stable compared to the CT of earlier in the day. No new osseous abnormality seen. 2. Moderately advanced degenerative changes again noted. Please see yesterday's CT report for detailed description. RADIA
--- NOTE | 2019-07-08 21:13 | XRAY Report ---
Reason: LUMBAR RADICULOPATHY Procedure Date: 07/08/2019 Accession Number: [id number] / [id number] Procedure: XR - Hip w/Pelvis 2-3V RT CPT Code: Final Report FULL RESULT: EXAM: RIGHT HIP RADIOGRAPHY EXAM DATE: 07/08/2019 12:04 PM. CLINICAL HISTORY: Lumbar radiculopathy. Hip pain. COMPARISON: HIP W/PELVIS 2-3V RT 08/23/2018 8:39 AM LUMBAR SPINE W/O 07/08/2019 11:54 AM ABDOMEN/PELVIS W/ 02/12/2018 12:58 PM. TECHNIQUE: 2 views. FINDINGS: Bones: Normal. No fractures or bone lesion. Joints: No malalignment. Mild degenerative changes of both hips with joint space loss and osteophytosis partial ankylosis of the right sacroiliac joint again noted. Soft Tissues: Normal. No soft tissue swelling. IMPRESSION: 1. Mild degenerative changes in the hips. 2. 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 RADIA
== END 2019-07-08 11:41 | disposition home or self-care (01) ==
LOC: DI 11:40
PROVIDERS: ATTEND Nurse Practitioner Family
DX: M47.816 Spondylosis without myelopathy or radiculopathy, lumbar region (principal); M47.817 Spondylosis without myelopathy or radiculopathy, lumbosacral region; M47.814 Spondylosis without myelopathy or radiculopathy, thoracic region; M51.26 Other intervertebral disc displacement, lumbar region; M48.061 Spinal stenosis, lumbar region without neurogenic claudication; M51.27 Other intervertebral disc displacement, lumbosacral region; M51.36 Other intervertebral disc degeneration, lumbar region; M43.16 Spondylolisthesis, lumbar region; M51.37 Other intervertebral disc degeneration, lumbosacral region; M41.9 Scoliosis, unspecified; M16.0 Bilateral primary osteoarthritis of hip; M43.28 Fusion of spine, sacral and sacrococcygeal region
CPT/HCPCS: 72100; 72131

== ENCOUNTER 2019-08-06 14:35 | Emergency (ER) | payer MEDICARE, OTHER ==
--- NOTE | 2019-08-06 15:31 | ED Physician Documentation ---
PD HPI LOWER EXT INJURY - Stated complaint Stated Complaint: RT LEG PX/WEAKNESS - Chief complaint Chief Complaint: Ext Problem - History obtained from History obtained from: Patient - History of Present Illness PD HPI LOW EXT INJURY LOCATION: Right, Hip, Other (lower back) Type of injury: No: Fall, Twist Where injury occurred: Home (has had pain in low back and right posterior hip for months. Hurting more the past week or so. Been to PCP to get imaging and also trying to get to back specialist. The patient called provider office and told to come to ER, working on getting approval for MRI. Having worse pain recently. Worse with movement. No numbness of the leg.) Timing - duration: Days Timing - details: Gradual onset, Still present, Waxing and waning Improved by: No: Rest Worsened by: No: Moving, Palpating Associated symptoms: Weakness, Numbness, Swelling Contributing factors: No: Anticoagulated, Prior ortho surgery Similar symptoms before: No diagnosis Recently seen: Not recently seen Review of Systems Constitutional: denies: Fever, Chills, Myalgias Skin: denies: Rash, Lesions Musculoskeletal: reports: Back pain (right lower back at iliac crest area.). denies: Neck pain Neurologic: reports: Focal weakness (right thigh feels weak, and has had it "give out" at times walking or trying to get up. Just flexion at hip is weak (very weak now).). denies: Numbness PD PAST MEDICAL HISTORY - Past Medical History Cardiovascular: Congestive heart failure, Hypertension, High cholesterol, Coronary artery disease, [place] Respiratory: COPD Psych: Depression - Past Surgical History Past Surgical History: Yes General: Appendectomy Cardiovascular: CABG HEENT: Rhinoplasty, Tonsil/Adenoidectomy - Present Medications Home Medications: Ambulatory Orders Medication Instructions Recorded Confirmed Aspirin [Aspir 81] 364 mg ORAL DAILY 04/14/15 04/14/15 Losartan [Cozaar] 04/14/15 04/14/15 Nitroglycerin [place] [Nitrolingual 1 spray ORAL QID PRN 04/14/15 04/14/15 [place]] Sertraline HCl 04/14/15 04/14/15 Verapamil HCl [Verapamil ER] 04/14/15 04/14/15 raNITIdine [Zantac] 150 mg PO DAILY #20 tablet 04/14/15 HYDROcodone/ACET 7.5/325 [[place] 1 each PO Q6H PRN #20 tablet 08/06/19 7.5/325] Tizanidine HCl 4 mg PO TID PRN #25 capsule 08/06/19 dexAMETHasone [Decadron] 4 mg PO DAILY #7 tablet 08/06/19 - Allergies Allergies/Adverse Reactions: Allergies Allergy/AdvReac Type Severity Reaction Status Date / Time No Known Drug Allergies Allergy Verified 08/06/19 14:42 - Social History Does the pt smoke?: No Smoking Status: Never smoker Does the pt have substance abuse?: No - POLST Patient has POLST: No PD ED PE NORMAL - Vitals Vital signs reviewed: Yes - General General: Alert and oriented X 3, No acute distress, Well developed/nourished - Cardiac Cardiac: RRR, No murmur - Respiratory Respiratory: Clear bilaterally - Abdomen Abdomen: Normal bowel sounds, Soft, Non tender, Non distended - Derm Derm: Normal color, Warm and dry - Extremities Extremities: No deformity, No tenderness to palpate - Neuro Neuro: Alert and oriented X 3, No sensory deficit, Normal speech, Other (normal knee reflexes. ). No: No motor deficit (weak for hip flexion and cannot lift right leg off the ground. ) Results - Vitals Vitals: Vital Signs - 24 hr 08/06/19 08/06/19 14:42 16:20 Temperature 36.5 C Heart Rate 98 94 Respiratory 17 18 Rate Blood Pressure 146/88 H 154/88 H O2 Saturation 97 97 Oxygen O2 Source Room air PD MEDICAL DECISION MAKING - ED course Complexity details: considered differential (consider L1/L2 nerve impingement, as that would give the hip flexor weakness. Also tender at upp SI area on right, could be sourse of the discomfort and weakness if having some inflammation at the SI. ), d/w patient Departure - Departure Disposition: 01 Home, Self Care Clinical Impression: Sacroiliitis, Right leg weakness, Lumbar radiculitis Condition: Stable Record reviewed to determine appropriate education?: Yes Instructions: ED Sciatica Follow-Up: Catracho Chacon MD [Primary Care Provider] - Prescriptions: dexAMETHasone [Decadron] 4 mg PO DAILY #7 tablet HYDROcodone/ACET 7.5/325 [[place] 7.5/325] 1 each PO Q6H PRN #20 tablet PRN Reason: Pain Tizanidine HCl 4 mg PO TID PRN #25 capsule PRN Reason: Spasms Comments: Due to limited availability, we have only half week availability of our MRI currently. This still can be done outpatient part of the week. Contact your primary care's office to order an outpatient lumbar MRI to better evaluate for nerve root compression. You could possibly be having inflammation around the sacroiliac joint as well, given where your pain is, and so could be causing nerve irritation once the nerves are out from the spine. This process called sacroiliitis, would also be treated with anti-inflammatories and muscle relaxants and pain medicine similar to a pinched nerve from a disc initially. Decadron steroid daily for 7 days. Tizanidine muscle relaxant 3 or 4 times a day to help with spasm oriented formation there as well. Continue your Xarelto blood thinner. Consider holding your cholesterol medicine for a month or 2 as those do associate with increased muscle weakness in the legs at times. Add Tylenol 4 times a day or hydrocodone if needed for worse pain. Discharge Date/Time: 08/06/19 16:23
[2019-08-06] MEDS ORDERED: methocarbamoL 500 MG TABLET PO STA (16:07)
[2019-08-06] MEDS ORDERED: ACETAMINOPHEN 325 MG TABLET PO STA (16:07)
[2019-08-06] MEDS ORDERED: CHERRY SYRUP 10 ML UDC PO ONE (16:07)
[2019-08-06] MEDS ORDERED: DEXAMETHASONE 10 MG/ML VIAL PO STA (16:07)
[2019-08-06 16:21] VITALS: BP 154/88
== END 2019-08-06 16:23 | disposition home or self-care (01) ==
LOC: ED 14:35
DX: M46.1 Sacroiliitis, not elsewhere classified (principal); M54.16 Radiculopathy, lumbar region; I10 Essential (primary) hypertension
CPT/HCPCS: 99283; 99284; A9270

== ENCOUNTER 2019-10-14 11:55 | Outpatient (CLI) | payer MEDICARE, OTHER ==
[2019-10-14] MEDS ORDERED: IOVERSOL 320 50 ML VIAL ONE (12:02)
[2019-10-14] MEDS ORDERED: IOVERSOL 320 100 ML VIAL IVP ONE ×2 (12:02→17:00)
[2019-10-14 12:33] LABS: CREATININE 1.6 mg/dL (0.6-1.2)
[2019-10-14] MEDS ORDERED: IOVERSOL 320 50 ML VIAL PO ONE (17:00)
--- NOTE | 2019-10-14 19:37 | CT Report ---
PROCEDURE: CHEST W INDICATIONS: LLQ PAIN, MASS OF RT LOWER LOBE OF LUNG CONTRAST: IV CONTRAST: Optiray 320 ml: 80 PO CONTRAST: Optiray 320 ml50 TECHNIQUE: After the administration of intravenous contrast, 5 mm thick sections acquired from the pulmonary api lorena to the posterior costophrenic angles. 7 mm thick coronal MIP reformats were acquired. For radia tion dose reduction, the following was used: automated exposure control, adjustment of mA and/or kV according to patient size. COMPARISON: None. FINDINGS: Image quality: Excellent. Lungs and pleura: No acute air space opacities. There are small-moderate bilateral pleural effusion s with mild compressive atelectasis. No pneumothorax. Central and peripheral airways are patent and normal in caliber. Mediastinum: Heart size is normal. Scattered atherosclerotic coronary arterial calcifications. No pericardial effusion. No mediastinal or hilar adenopathy by size criteria. Thoracic aorta and centr al pulmonary arteries are normal in size. Atherosclerosis of the thoracic aorta. Esophagus is kunal l in caliber. No hiatal hernia. Bones and chest wall: No suspicious bony lesions. Median sternotomy wires are present. Left cardiac pacer device is present. No acute vertebral body compression fractures. No axillary or supraclavicu lar adenopathy by size criteria. Thyroid gland is unremarkable. Multilevel degenerative changes of the imaged spine are noted. Abdomen: Visualized upper abdominal solid organs appear normal. Upper abdominal bowel loops are nor mal in caliber. IMPRESSION: 1. Small-moderate sized bilateral pleural effusions. 2. No mass lesions, adenopathy, or other suspicious abnormalities identified in the chest. Reviewed by: Al Vázquez MD on 10/14/2019 7:36 PM PDT Approved by: Al Vázquez MD on 10/14/2019 7:36 PM PDT Station ID: [id number]
--- NOTE | 2019-10-14 20:38 | CT Report ---
PROCEDURE: Abdomen/Pelvis W INDICATIONS: LLQ PAIN, MASS OF RT LOWER LOBE OF LUNG CONTRAST: IV CONTRAST: Optiray 320 ml: 100 PO CONTRAST: Optiray 320 ml50 TECHNIQUE: After the administration of oral and intravenous contrast, 5 mm thick sections acquired from the diap hragms to the symphysis. 5 mm thick coronal and sagittal reformats were acquired. For radiation dos e reduction, the following was used: automated exposure control, adjustment of mA and/or kV accordin g to patient size. COMPARISON: 02/12/2018, 07/13/2017, and 06/20/2016. FINDINGS: Image quality: Excellent. ABDOMEN: Lung bases: Small-moderate sized bilateral pleural effusions with compressive atelectasis. Heart siz e is stable. Solid organs: Liver and spleen are normal in size and enhancement. Gallbladder is unremarkable. Bi liary system is non dilated. Pancreas enhances normally. Stable left adrenal nodule measuring appro ximately 2.5 cm x 1.4 cm in transverse dimension. No right adrenal nodules. Kidneys demonstrate norm al size and enhancement, without hydronephrosis. Multiple cortical and subcortical renal cysts are ag ain noted and appear stable to minimally larger in size. No suspicious features or internal solid com ponents visualized. The largest on the right measures approximately 2.4 cm and the largest on the lef t measures approximately 5.7 cm. No significant perinephric stranding. Peritoneum and bowel: Bowel loops demonstrate normal wall thickness and caliber. Scattered colonic diverticulosis without acute inflammation. No free fluid or air. Nodes and vessels: No retroperitoneal or mesenteric adenopathy by size criteria. Aorta and inferior vena cava are normal in size. Scattered atherosclerotic disease with mild-moderate narrowing at the origin of the superior mesenteric artery. Miscellaneous: Small fat containing umbilical hernia without acute inflammatory changes. PELVIS: Genitourinary: Bladder wall thickness is normal. Miscellaneous: New left inguinal hernia containing a short segment of the proximal sigmoid colon. No evidence of obstruction proximal to this segment. No wall thickening or acute inflammatory changes. No right inguinal hernias. No pelvic adenopathy. Bones: No suspicious bony lesions. No acute vertebral body compression fractures. Moderate multilev el spondylosis of the imaged spine. Stable alignment. IMPRESSION: 1. New left inguinal hernia containing a short segment of proximal sigmoid colon without acute inflam matory changes or evidence of obstruction. 2. Scattered colonic diverticulosis without evidence for acute diverticulitis. 3. Small-moderate bilateral pleural effusions with associated compressive atelectasis. 4. Stable left adrenal nodule. 5. Relatively stable appearance of multiple cortical and subcortical bilateral renal cysts. Recommend continued imaging surveillance with follow up CT or MRI in one year. Other chronic findings as above. Reviewed by: Al Vázquez MD on 10/14/2019 8:37 PM PDT Approved by: Al Vázquez MD on 10/14/2019 8:37 PM PDT Station ID: [id number]
== END 2019-10-14 11:56 | disposition home or self-care (01) ==
LOC: LAB 11:55 → DI 11:56
PROVIDERS: ATTEND Internal Medicine
DX: K40.90 Unilateral inguinal hernia, without obstruction or gangrene, not specified as recurrent (principal); K57.30 Diverticulosis of large intestine without perforation or abscess without bleeding; E27.9 Disorder of adrenal gland, unspecified; N28.1 Cyst of kidney, acquired; J90 Pleural effusion, not elsewhere classified; N18.3 Chronic kidney disease, stage 3 (moderate)
CPT/HCPCS: 36415; 71260; 74177; 82565; Q9967

== ENCOUNTER 2020-03-06 10:42 | Outpatient (CLI) | payer MEDICARE, OTHER ==
--- NOTE | 2020-03-06 12:21 | Ultrasound Report ---
PROCEDURE: Head or Neck Soft Tissue INDICATIONS: CERICAL LYMPHADENOPATHY TECHNIQUE: Real time scanning was performed of the neck region of interest, with image documentation . COMPARISON: CT 10/14/2019, prior ultrasound 08/23/2018 chest. FINDINGS: No soft tissue neck abnormality seen bilaterally that would suggest presence of infection or neoplasm. There has been no change in size of the left submandibular gland when compared to the pr ior study measuring 1.1 x 2.7 x 3.1 cm. This is slightly asymmetrically larger when compared to the s ubmandibular gland on the right. No enlarged lymph nodes are seen. IMPRESSION: No identifiable change with slight asymmetric enlargement of the left submandibular gland when compar ed to that on the right within the range of normal anatomic variation, with reference to the earlier study of August 23, 2018. No adenopathy seen. Reviewed by: Zafar Clemente MD on 03/06/2020 12:20 PM PST Approved by: Zafar Clemente MD on 03/06/2020 12:20 PM PST Station ID: [id number]
== END 2020-03-06 10:43 | disposition home or self-care (01) ==
LOC: DI 10:42
PROVIDERS: ATTEND Nurse Practitioner Family
DX: R59.0 Localized enlarged lymph nodes (principal)
CPT/HCPCS: 76536

== ENCOUNTER 2020-10-03 13:30 | Outpatient (CLI) | payer MEDICARE, OTHER ==
[2020-10-03 13:57] LABS: CALCIUM 9.5 mg/dL (8.5-10.3); CREATININE 1.5 mg/dL (0.6-1.2)
== END 2020-10-03 13:31 | disposition home or self-care (01) ==
LOC: LAB 13:30
PROVIDERS: ATTEND Internal Medicine Cardiovascular Disease
DX: I50.23 Acute on chronic systolic (congestive) heart failure (principal)
CPT/HCPCS: 36415; 80048; 83880

== ENCOUNTER 2020-11-08 12:38 | Outpatient (CLI) | payer MEDICARE, OTHER ==
[2020-11-08 13:16] LABS: CALCIUM 9.7 mg/dL (8.5-10.3); CREATININE 1.6 mg/dL (0.6-1.2); POTASSIUM 4.2 mmol/L (3.5-5.0)
== END 2020-11-08 12:39 | disposition home or self-care (01) ==
LOC: LAB 12:38
PROVIDERS: ATTEND Internal Medicine Cardiovascular Disease
DX: I50.23 Acute on chronic systolic (congestive) heart failure (principal)
CPT/HCPCS: 36415; 80048; 83880

== ENCOUNTER 2020-12-29 16:09 | Outpatient (CLI) | payer MEDICARE, OTHER | END 2020-12-29 16:10 | disposition home or self-care (01) | LOC: COV 16:09 | PROVIDERS: ATTEND Family Medicine | DX: U07.1 COVID-19 (principal) ==

== ENCOUNTER 2021-01-04 16:07 | Outpatient (CLI) | payer MEDICARE, OTHER | END 2021-01-04 16:08 | disposition home or self-care (01) | LOC: COV 16:07 | PROVIDERS: ATTEND Family Medicine | DX: U07.1 COVID-19 (principal) ==

== ENCOUNTER 2021-08-16 10:52 | Outpatient (CLI) | payer MEDICARE, OTHER ==
[2021-08-16 11:21] LABS: CALCIUM 9.5 mg/dL (8.5-10.3); CREATININE 1.9 mg/dL (0.6-1.2); POTASSIUM 4.1 mmol/L (3.5-5.0)
[2021-08-16] MEDS ORDERED: IOVERSOL 320 100 ML VIAL IVP ONE ×2 (11:50→13:09)
--- NOTE | 2021-08-16 13:37 | CT Report ---
PROCEDURE: CERVICAL SPINE WO INDICATIONS: LIGHTHEADEDNESS TECHNIQUE: Noncontrast 3 mm thick sections acquired from the skull base to the T4 level. Sagittal and coronal r eformats were then constructed. For radiation dose reduction, the following was used: automated exp osure control, adjustment of mA and/or kV according to patient size. COMPARISON: Correlation is made with the examining head CT, 08/16/2021. Correlation is also made with the prior cervical MRI, 09/07/2016. FINDINGS: Image quality: Excellent. Bones: No fractures or dislocations. Visualized superior ribs are intact. Focal degenerative change can also be seen involving the C1-C2 interface anteriorly. Mild disc space narrowing is seen at C3-C4. Moderate severe disc space narrowing is seen at C4-C5 and C5-C6, with ass ociated partial bony fusion and endplate irregularity and endplate osteophyte formation. At least mod erate disc space narrowing is seen at C6-C7. Posterior directed endplate osteophytes are seen, which are worst at the C5-C6 level. There is overall straightening of the normal cervical lordosis. Sternotomy wires are partially seen on the lead electrician image. Soft tissues: Prevertebral soft tissues are normal in thickness. No paravertebral hematomas. No ap ical pneumothoraces. Left-sided pacer leads are partially seen. Atherosclerotic calcification is see n. IMPRESSION: No acute abnormality is seen by CT. Multiple levels of relatively prominent cervical spine degenerative change can be seen. Compared to 2016 MRI examination, the degenerative changes are believed to have mildly progressed in the inter michelle. Incidental note is made of: Atherosclerotic calcification calcification Left sided pacer leads Sternotomy wires Reviewed by: Nnamdi Pan MD on 08/16/2021 12:36 PM THUY Approved by: Nnamdi Pan MD on 08/16/2021 12:36 PM THUY Station ID: [id number]
--- NOTE | 2021-08-16 16:34 | CT Report ---
PROCEDURE: HEAD W/WO INDICATIONS: LIGHTHEADEDNESS CONTRAST: TECHNIQUE: 4.5 mm thick angled axial sections acquired from the foramen magnum to the vertex both before and aft er the administration of intravenous contrast. For radiation dose reduction, the following was used: automated exposure control, adjustment of mA and/or kV according to patient size. COMPARISON: None FINDINGS: Image quality: Excellent. CSF spaces: Basal cisterns are patent. No extra-axial fluid collections. Ventricles are symmetric in size and shape. Brain: No midline shift. No intracranial bleeds or masses. No abnormal intracranial enhancement. There is cerebral volume loss for age. There is periventricular white matter chronic small vessel is chemic change. There is intracranial internal carotid artery atherosclerosis. Dural sinuses demonstr ate normal postcontrast enhancement. Skull and face: Calvarium and visualized facial bones appear intact, without suspicious lesions. Sinuses: Visualized sinuses and mastoids are clear. IMPRESSION: No acute intracranial disease process. No suspicious postcontrast enhancement. No abnormal intracranial mass or mass effect. Reviewed by: Janessa Singh MD, PhD on 08/16/2021 4:33 PM PDT Approved by: Janessa Singh MD, PhD on 08/16/2021 4:33 PM PDT Station ID: [id number]
== END 2021-08-16 10:53 | disposition home or self-care (01) ==
LOC: DI 10:52
PROVIDERS: ATTEND Nurse Practitioner Family
DX: R42 Dizziness and giddiness (principal); M47.812 Spondylosis without myelopathy or radiculopathy, cervical region; M50.321 Other cervical disc degeneration at C4-C5 level; M48.02 Spinal stenosis, cervical region
CPT/HCPCS: 36415; 70470; 72125; 80048; Q9967

== ENCOUNTER 2021-08-22 08:00 | Outpatient (CLI) | payer MEDICARE, OTHER ==
--- NOTE | 2021-08-22 16:52 | XRAY Report ---
PROCEDURE: Chest 2 View X-Ray INDICATIONS: EXERTIONAL SHORTNESS OF BREATH TECHNIQUE: 2 view(s) of the chest. COMPARISON: 03/12/2019 FINDINGS: Surgical changes and devices: Left-sided pacer. Median sternotomy wires. Lungs and pleura: No pneumothorax. Small bilateral pleural effusions. Mild reticulonodular pulmonary opacity. Mediastinum: Mediastinal contours are normal. Heart size is normal. Bones and chest wall: No suspicious bony abnormalities. Soft tissues appear unremarkable. IMPRESSION: Mild edema versus atypical pneumonia. Reviewed by: Senthil Hernandez MD on 08/22/2021 4:50 PM PDT Approved by: Senthil Hernandez MD on 08/22/2021 4:50 PM PDT Station ID: [id number]
== END 2021-08-22 23:59 | disposition home or self-care (01) ==
LOC: DI.S 08:00
PROVIDERS: ATTEND Emergency Medicine
DX: R06.09 Other forms of dyspnea (principal); R91.8 Other nonspecific abnormal finding of lung field

== ENCOUNTER 2021-10-08 10:23 | Outpatient (CLI) | payer MEDICARE, OTHER | END 2021-10-08 10:24 | disposition home or self-care (01) | LOC: LAB.S 10:23 | PROVIDERS: ATTEND Internal Medicine Cardiovascular Disease | DX: I50.23 Acute on chronic systolic (congestive) heart failure (principal) | CPT/HCPCS: 36415; 80048; 83880 ==

== ENCOUNTER 2021-10-15 10:17 | Outpatient (CLI) | payer MEDICARE, OTHER ==
[2021-10-15 15:05] LABS: CALCIUM 9.7 mg/dL (8.5-10.3); CREATININE 1.9 mg/dL (0.6-1.2); POTASSIUM 4.3 mmol/L (3.5-5.0)
== END 2021-10-15 10:18 | disposition home or self-care (01) ==
LOC: LAB.S 10:17
PROVIDERS: ATTEND Internal Medicine Cardiovascular Disease
DX: I50.23 Acute on chronic systolic (congestive) heart failure (principal)
CPT/HCPCS: 36415; 80048